=== PATIENT | female | born 2000 | race Caucasian/White ===

== ENCOUNTER 2020-03-11 11:53 | Outpatient (CLI) | payer BC, SELFPAY ==
[2020-03-12 02:28] LABS: COVID-19 RT-PCR UVMMC Result Negative (Negative)
== END 2020-03-11 12:13 ==
PROVIDERS: PCP Pediatrics; Visit Provider Pediatrics
DX: R50.9 Fever, unspecified (principal)
CPT/HCPCS: U0003

== ENCOUNTER 2020-07-26 15:52 | Outpatient (REF) | payer BC, SELFPAY ==
[2020-07-30 13:23] LABS: COVID-19 RT-PCR Result Negative
== END 2020-07-26 16:12 ==
LOC: LBN 15:52
PROVIDERS: PCP Pediatrics; Visit Provider Nurse Practitioner Pediatrics
DX: R50.9 Fever, unspecified (principal)
CPT/HCPCS: U0003

== ENCOUNTER 2020-07-29 18:21 | Outpatient (REF) | payer BC, SELFPAY | END 2020-07-29 18:41 | LOC: LBN 18:21 | PROVIDERS: PCP Pediatrics; Visit Provider Pediatrics | DX: R39.9 Unspecified symptoms and signs involving the genitourinary system (principal) | CPT/HCPCS: 87077; 87086; 87186 ==